=== PATIENT | female | born 1940 | race Caucasian/White ===

== ENCOUNTER 2017-10-28 08:51 | Day surgery (SDC) | payer OTHER ==
[2017-10-28] MEDS: POVIDONE-IODINE 5% OPHTH PREP SOL 30ML As Ordered ×6 (06:42→11:44)
[2017-10-28] MEDS: CEFUROXIME 1MG/0.1ML INTRACAMERAL INJ As Ordered ×3 (06:42)
[2017-10-28] MEDS: LIDOCAINE 1% SDV 5 ML VIAL As Ordered ×6 (06:42→11:45)
[2017-10-28] MEDS: HEALON DUET (HEALON 10MG/ML 0.55ML & HEALON ENDOCOAT 30MG/ML 0.85ML) As Ordered ×6 (06:42→11:44)
[2017-10-28] MEDS: BSS with VANC/TOB/EPI for EYE CASES IR ×6 (07:00→11:45)
[~2017-10-28 08:51] MED LIST: CYCLOPENTOLATE 2% OPHTH SOLN 2ML BTL OD; LIDOCAINE 3.5 % 1ML OPHTH TOPICAL GEL OU; OFLOXACIN 0.3 % (OCUFLOX) OPTH SOL 5ML OD; PHENYLEPHRINE 2.5% OPHTH SOL 2ML OD; PHENYLEPHRINE HCL 10 % OPHTH. SOL 5ML OD; TROPICAMIDE 1% OPHTH SOLN 2ML OD
[2017-10-28] MEDS ORDERED: LR 1,000 ML IV ×3 (09:00)
[2017-10-28] MEDS ORDERED: LIDOCAINE 1% SDV 5 ML VIAL SQ ×3 (09:00)
[2017-10-28] MEDS: LIDOCAINE 3.5 % 1ML OPHTH TOPICAL GEL OU ×3 (09:40)
[2017-10-28] MEDS: OFLOXACIN 0.3 % (OCUFLOX) OPTH SOL 5ML OD ×3 (09:48)
[2017-10-28] MEDS: PHENYLEPHRINE 2.5% OPHTH SOL 2ML OD ×3 (09:48)
[2017-10-28] MEDS: TROPICAMIDE 1% OPHTH SOLN 2ML OD ×3 (09:48)
[2017-10-28] MEDS: CYCLOPENTOLATE 2% OPHTH SOLN 2ML BTL OD ×3 (09:48)
[2017-10-28 10:07] LABS: BEDSIDE GLUCOSE 130 MG/DL (83-110)
[2017-10-28] MEDS ORDERED: MIDAZOLAM INJ 2 MG/2 ML VIAL (J2250) As Ordered ×3 (11:15)
[2017-10-28] MEDS ORDERED: fentaNYL 100 MCG/2 ML INJECTION (J3010) As Ordered ×3 (11:15)
[2017-10-28] MEDS ORDERED: TRIAMCINOLONE PRES FR 40 MG/ML 1ML(TRIESENCE)(OR EYE ONLY)(J3300 PER 1MG) As Ordered ×3 (11:28)
[2017-10-28] MEDS ORDERED: MOXIFLOXACIN IN BSS 0.25MG/0.25ML INTRACAMERAL INJ (OR EYE ONLY)(J2280) As Ordered ×3 (11:28)
[2017-10-28] MEDS: TRIAMCINOLONE PRES FR 40 MG/ML 1ML(TRIESENCE)(OR EYE ONLY)(J3300 PER 1MG) As Ordered ×3 (11:45)
[2017-10-28] MEDS: MOXIFLOXACIN IN BSS 0.25MG/0.25ML INTRACAMERAL INJ (OR EYE ONLY)(J2280) As Ordered ×3 (11:45)
[2017-10-28] MEDS ORDERED: HEALON DUET (HEALON 10MG/ML 0.55ML & HEALON ENDOCOAT 30MG/ML 0.85ML) As Ordered ×3 (11:48)
== END 2017-10-28 12:46 | disposition home or self-care (01) ==
LOC: M SDC 08:51
DX: H26.9 Unspecified cataract (principal); E11.9 Type 2 diabetes mellitus without complications; E03.9 Hypothyroidism, unspecified; I10 Essential (primary) hypertension; E78.5 Hyperlipidemia, unspecified; M19.90 Unspecified osteoarthritis, unspecified site; Z88.2 Allergy status to sulfonamides; Z88.8 Allergy status to other drugs, medicaments and biological substances; Z91.048 Other nonmedicinal substance allergy status; Z79.899 Other long term (current) drug therapy; Z79.82 Long term (current) use of aspirin; Z79.84 Long term (current) use of oral hypoglycemic drugs
CPT/HCPCS: 66984

== ENCOUNTER 2017-12-24 08:22 | Day surgery (SDC) | payer OTHER ==
[~2017-12-24 08:22] MED LIST changes: -CYCLOPENTOLATE 2% OPHTH SOLN 2ML BTL OD; -LIDOCAINE 3.5 % 1ML OPHTH TOPICAL GEL OU; -OFLOXACIN 0.3 % (OCUFLOX) OPTH SOL 5ML OD; -PHENYLEPHRINE 2.5% OPHTH SOL 2ML OD; -PHENYLEPHRINE HCL 10 % OPHTH. SOL 5ML OD; +PHENYLEPHRINE HCL 10 % OPHTH. SOL 5ML OS; -TROPICAMIDE 1% OPHTH SOLN 2ML OD
[2017-12-24] MEDS ORDERED: TROPICAMIDE 1% OPHTH SOLN 2ML As Ordered (08:46)
[2017-12-24] MEDS ORDERED: OFLOXACIN 0.3 % (OCUFLOX) OPTH SOL 5ML As Ordered (08:46)
[2017-12-24] MEDS ORDERED: PHENYLEPHRINE 2.5% OPHTH SOL 2ML As Ordered (08:46)
[2017-12-24] MEDS ORDERED: CYCLOPENTOLATE 2% OPHTH SOLN 2ML BTL As Ordered (08:46)
[2017-12-24] MEDS: LIDOCAINE 3.5 % 1ML OPHTH TOPICAL GEL OU (09:10)
[2017-12-24] MEDS: OFLOXACIN 0.3 % (OCUFLOX) OPTH SOL 5ML OS (09:11)
[2017-12-24 09:12] LABS: BEDSIDE GLUCOSE 108 MG/DL (83-110)
[2017-12-24] MEDS: TROPICAMIDE 1% OPHTH SOLN 2ML OS (09:12)
[2017-12-24] MEDS: PHENYLEPHRINE 2.5% OPHTH SOL 2ML OS (09:13)
[2017-12-24] MEDS: CYCLOPENTOLATE 2% OPHTH SOLN 2ML BTL OS (09:14)
[2017-12-24] MEDS ORDERED: fentaNYL 100 MCG/2 ML INJECTION (J3010) As Ordered (10:50)
[2017-12-24] MEDS ORDERED: MIDAZOLAM INJ 2 MG/2 ML VIAL (J2250) As Ordered (10:50)
[2017-12-24] MEDS: POVIDONE-IODINE 5% OPHTH PREP SOL 30ML As Ordered (10:56)
[2017-12-24] MEDS: LIDOCAINE 1% SDV 5 ML VIAL As Ordered (10:56)
[2017-12-24] MEDS: HEALON DUET (HEALON 10MG/ML 0.55ML & HEALON ENDOCOAT 30MG/ML 0.85ML) As Ordered (10:56)
[2017-12-24] MEDS: MOXIFLOXACIN IN BSS 0.25MG/0.25ML INTRACAMERAL INJ (OR EYE ONLY)(J2280) As Ordered (10:56)
[2017-12-24] MEDS: TRIAMCINOLONE PRES FR 40 MG/ML 1ML(TRIESENCE)(OR EYE ONLY)(J3300 PER 1MG) As Ordered (10:56)
[2017-12-24] MEDS: BSS with VANC/TOB/EPI for EYE CASES IR (10:57)
== END 2017-12-24 11:53 | disposition home or self-care (01) ==
LOC: M SDC 08:22
DX: H25.9 Unspecified age-related cataract (principal); E11.9 Type 2 diabetes mellitus without complications; Z88.0 Allergy status to penicillin; Z88.8 Allergy status to other drugs, medicaments and biological substances; Z79.82 Long term (current) use of aspirin; I10 Essential (primary) hypertension; Z79.899 Other long term (current) drug therapy
CPT/HCPCS: 66984